=== PATIENT | female | born 1970 | race Caucasian/White ===

== ENCOUNTER 2024-05-05 16:22 | Emergency (ER) | payer MEDICARE, SELFPAY ==
[2024-05-05 16:28] VITALS: BP 129/73
[2024-05-05 19:22] VITALS: BP 113/81
[2024-05-05 19:30] LABS: % Basophils 0.9 % (0-2); % Eosinophils 4.4 % (0-6); % Immature Granulocytes 0.2 % (0-0.5); % Monocytes 6.9 % (1.7-9.3); % Neutrophils 48.6 % (42.2-75.2); Absolute Eosinophils 0.2 10^3/uL (0-0.7); Absolute Lymphocytes 1.8 10^3/uL (1.2-3.4); Absolute Monocytes 0.3 10^3/uL (0.1-0.6); Absolute Neutrophils 2.2 10^3/uL (1.4-6.5); Hemoglobin 14.4 g/dL (12.0-16.0); Mean Corp Hgb Conc. 36.9 g/dL (33.0-37.0); Mean Corpuscular Hgb 31.8 pg (27.0-31.0); Mean Corpuscular Volume 86.1 fL (81.0-99.0); Mean Platelet Volume 9.8 fL (7.4-10.4); Nucleated Red Blood Cells % 0.7 %; Platelet Count 215 10^3/uL (130-400); Red Blood Cell Count 4.53 10^6/uL (4.20-5.40); Red Cell Dist. Width 11.8 % (11.5-14.5); White Blood Cell Count 4.5 10^3/uL (4.8-10.8)
[2024-05-05 19:44] LABS: ALT (SGPT) 38 U/L (0-35); AST (SGOT) 35 U/L (14-36); Albumin 4.9 g/dl (3.5-5.0); Alkaline Phosphatase 81 U/L (38-126); Blood Urea Nitrogen 18 mg/dl (7-17); Calcium 9.8 mg/dl (8.4-10.2); Carbon Dioxide 26 mmol/L (22-30); Chloride 108 mmol/L (98-107); Glucose 93 mg/dl (70-99); Potassium 4.5 mmol/L (3.5-5.1); Sodium 139 mmol/L (135-145); Total Bilirubin 0.6 mg/dl (0.2-1.3); Total Protein 7.7 g/dl (6.3-8.2); eGFR > 60.00
[2024-05-05 19:56] LABS: Troponin I < 0.012 ng/ml
--- NOTE | 2024-05-05 20:06 | ED.GENMED ---
History of Present Illness
General
Chief Complaint: Abdominal Pain
Time Seen by Provider: 05/05/24 18:12
History of Present Illness
History of Present Illness:
53-year-old female with history of COPD presenting to the emergency department with an episode of pain in her chest. Patient reports this morning she was eating cereal and felt like someone punched her in the chest. Symptoms however resolved
shortly after. She has had no reoccurrence of symptoms. Denies any known issues with her heart. Denies any nausea, vomiting, abdominal pain, fever. Denies any difficulty breathing. Denies additional acute medical complaints
Past History
Past History
ED Past Medical History: COPD, Psychiatric (anxiety) and Other (Hep C, Bronchitis, H-Pylory); Negative HTN, Hypercholesterolemia or NIDDM
ED Past Surgical History: Gynecological (tubel)
Social History
Tobacco: Smoker
Alcohol: Occasional
Drug: Marijuana
Personal:
Living: with family
Employment: Employed
Family History
Family History: Other
Phy Exam
Physical Exam
Physical Exam:
General: Well-appearing, no clinical signs of dehydration, nontoxic and in no acute distress
HEENT: protecting airway
Neck: appears supple
CV: Normal heart rate, regular rhythm
Resp: No accessory muscle use, no increased work of breathing, lungs clear to auscultation bilaterally
Abd: Soft and non-distended, no tenderness to palpation
Extremities: No deformities, no swelling
Neuro: alert, no focal neurologic deficit
: deferred
Rectal: deferred
Psych: Normal affect
Skin: Intact
Course
Orders/Labs/Results
Orders:
Orders
05/05/24 18:43
Electrocardiogram (*1) Stat
Reason for Study: Other
Other Reason for Exam: chest pain
EKG- Treatment ONCE
05/05/24 19:21
Complete Blood Count/With Diff Urgent
Comprehensive Metabolic Panel Urgent
Troponin I Urgent
Abnormal Lab Results
05/05/24
19:21
WBC 4.5 L 10^3/uL
(4.8-10.8)
MCH 31.8 H pg
(27.0-31.0)
Chloride 108 H mmol/L
(98-107)
BUN 18 H mg/dl
(7-17)
ALT 38 H U/L
(0-35)
05/05/24 19:21
05/05/24 19:21
Vital Signs
Initial and Last Documented VS:
Initial Vital Signs
Temp Pulse Resp BP Pulse Ox
98.3 F 72 16 129/73 99
05/05/24 16:28 05/05/24 16:28 05/05/24 16:28 05/05/24 16:28 05/05/24 16:28
Last Documented Vital Signs
Temp Pulse Resp BP Pulse Ox
98.3 F 59 16 113/81 100
05/05/24 16:28 05/05/24 19:22 05/05/24 19:22 05/05/24 19:22 05/05/24 19:22
MDM/Problems Addressed
MDM/Problems Addressed:
53-year-old female with history of COPD presenting with an episode of discomfort in her chest. Vitals normal.
On exam patient is asymptomatic, well-appearing. EKG obtained, right bundle branch block, however unchanged from prior. Patient currently asymptomatic with unremarkable cardiac and pulmonary exam. She is afebrile, nontoxic, without concern for
infectious process. No tenderness to abdomen concern for serious intra-abdominal pathology. Unclear etiology of symptoms, however will screen with laboratory analysis including troponin.
20:10 - Labs unremarkable, negative troponin. Patient remains asymptomatic and hemodynamically stable. Feel stable for discharge with outpatient follow-up. Return precautions discussed and patient verbalized understanding
*EKG
Interpreted by ED Provider?: Yes
EKG Intrepretation Date: 05/05/24
EKG Intrepretation Time: 20:08
Interpretation: normal
Comparison EKG: no changes (10/25/21)
Heart Rate: 65
Rate: normal
Rhythm: sinus
QRS Pattern: right bundle branch block and other (left anterior fascicular block)
Ischemia: no ischemia
*Critical Care Note
Total Time (30-74mins, 75-104mins- exclusive of procedures): Not Applicable
ED Attending Note
-
Portions of this chart may have been created with voice recognition software.� Occasional wrong word or��sound alike� substitutions may have occurred due to the inherent limitations of voice recognition software.
Discharge Plan
Departure
Patient Disposition: Home (Routine Discharge)
Date of Disposition: 05/05/24
Time of Disposition: 20:10
Patient with high blood pressure during this ER visit?: No
Discharge Problem:
Chest wall pain
Instructions: Chest pain - Discharge instructions
Prescriptions:
No Action
albuterol sulfate 1 PUFF HFA aerosol inhaler
2 puff inhalation R Q4 PRN (Reason: sob/wheezing)
ipratropium-albuterol 0.5 mg-3 mg(2.5 mg base)/3 mL Solution For Nebulization
3 ml inhalation R QID Qty: 90 0RF
guaifenesin 600 mg Tablet Extended Release 12hr
600 mg PO Q12 Qty: 0 0RF
acetaminophen 325 mg Tablet
650 mg PO Q4HPRN PRN (Reason: mild pain or temp >/= 100.4 F) Qty: 0 0RF
pantoprazole 40 mg Tablet,Delayed Release (Dr/Ec)
40 mg PO DAILY Qty: 20 0RF
prednisone 10 mg Tablet
See Rx Instructions .ROUTE .COMPLEX Qty: 45 0RF
Rx Instructions:
Take By Mouth:
50 mg daily x3 days, 40 mg daily x3 days,
30 mg daily x3 days, 20 mg daily x3 days,
10 mg daily x3 days
Referrals:
UNKNOWN - PT DOES,NOT KNOW [Family Provider] -
Activity Restrictions/Additional Instructions:
You were seen in the emergency department for chest pain
You were found to have normal blood work and EKG
Please follow-up closely with your primary care physician.
Return to the emergency department for any worsening of your symptoms, or any development of chest pain, difficulty breathing, abdominal pain with persistent vomiting and inability to tolerate food or liquid by mouth (concern for dehydration),
weakness, headache or confusion, fever greater than 100.4, or any additional symptoms that are concerning to you.
Thank you for choosing [facility].
Interventions
Interventions:
*Risk Screen - Suicide Last Done: 05/05/24 16:30
*General Assessment Last Done: 05/05/24 16:30
*Neglect/Abuse Screening Last Done: 05/05/24 16:30
*ED- Fall Risk Assessment Last Done: 05/05/24 16:30
*ED COVID-19 Vaccine History Last Done: 05/05/24 16:30
SV-Gcnbnn-Ghcuqfghwp Assessment Last Done: 05/05/24 18:14
Discharge Date and Time
Print Language: BOLIVIAN
== END 2024-05-05 20:14 | disposition home or self-care (01) ==
LOC: EMR 16:22
PROVIDERS: EMERGENCY PHYSICIAN Student in an Organized Health Care Education/Training Program
DX: R07.89 Other chest pain (principal); I45.2 Bifascicular block; J44.9 Chronic obstructive pulmonary disease, unspecified; Z86.19 Personal history of other infectious and parasitic diseases; F17.200 Nicotine dependence, unspecified, uncomplicated
CPT/HCPCS: 99284; 80053; 84484; 85025; 93005